=== PATIENT | male | born 1985 | race African-American/Black ===

== ENCOUNTER 2019-05-23 01:15 | Emergency (ER) | payer OTHER ==
[~2019-05-23] VITALS: Ht 175.3 cm; Wt 81.7 kg
[~2019-05-23 01:15] MED LIST: APIDRA SQ; HUMALOG100 UNIT/1 SC; HUMALOG100 UNIT/1 SQ; HUMULIN N100 UNIT/1 SC; LANTUS SC; LANTUS SQ; ONE TOUCH DELI1 EAC1
[2019-05-23 02:30] LABS: CALCIUM 8.7 mg/dL (8.5-10.1); CREATININE 11.9 mg/dL (0.7-1.3); POTASSIUM 4.4 mmol/L (3.5-5.1)
[2019-05-23 02:36] LABS: ALBUMIN 2.7 g/dL (3.4-5.0); DIRECT BILIRUBIN 0.1 mg/dL (<0.1-0.3); TOTAL BILIRUBIN 0.3 mg/dL (<0.1-1.0)
[2019-05-23 02:40] LABS: ABSOLUTE NEUTROPHILS 4.1 thou/uL (1.4-8.2); BASOPHILS 1.2 % (0.0-2.0); EOSINOPHILS 2.2 % (0.0-3.0); HEMATOCRIT 33.7 % (42.0-52.0); HEMOGLOBIN 10.9 gm/dL (14.0-18.0); LYMPHOCYTES 22.9 % (24.0-44.0); MCH 28.1 pg (26.0-34.0); MCHC 32.4 g/dL (28.0-37.0); MCV 86.6 fL (80.0-100.0); MONOCYTES 8.9 % (1.0-8.0); PLATELET COUNT 334 thou/uL (150-400); POLYS 64.8 % (36.0-66.0); RDW 17.1 % (10.5-14.5); WBC 6.3 thou/uL (4.0-11.0)
[2019-05-23 04:45] VITALS: BP 170/98
== END 2019-05-23 04:45 | disposition home or self-care (01) ==
LOC: ER 01:15
PROVIDERS: Emergency Medicine
DX: E11.649 Type 2 diabetes mellitus with hypoglycemia without coma (principal); E11.22 Type 2 diabetes mellitus with diabetic chronic kidney disease; N18.6 End stage renal disease; J45.909 Unspecified asthma, uncomplicated; F32.9 Major depressive disorder, single episode, unspecified; Z91.15 Patient's noncompliance with renal dialysis; Z79.4 Long term (current) use of insulin; Z99.2 Dependence on renal dialysis; Z88.8 Allergy status to other drugs, medicaments and biological substances

== ENCOUNTER 2019-06-10 06:01 | Emergency (ER) | payer OTHER ==
[~2019-06-10] VITALS: Ht 172.7 cm; Wt 78.4 kg
[2019-06-10 06:11] VITALS: BP 156/92
[2019-06-10 06:13] LABS: BE(vivo) -4.2 mmol/L (-2 to +3); HCO3 24.8 mmol/L (22.0-26.0); sO2 84.7 % (92.0-98.0)
[2019-06-10 06:15] LABS: PCO2 68.5 mmHg (35.0-45.0); pH 7.176 (7.360-7.450)
--- NOTE | 2019-06-10 06:25 | NUR ---
EKG COMPLETED. LEFT NASAL TRUMPET REMAINS IN PLACE. ATTEMPTING TO OBTAIN RECTAL TEMPERATURE. PATIENT PLACED ON 100%NRB. PAITENT CONTINUES TO JUST MOAN, STARTING TO FLAIL ARMS AND BECOME AGITATED. REPEAT GLUCOSE 145.
[2019-06-10 06:36] LABS: ABSOLUTE NEUTROPHILS 2.5 thou/uL (1.4-8.2); BASOPHILS 1.1 % (0.0-2.0); EOSINOPHILS 6.1 % (0.0-3.0); HEMATOCRIT 29.7 % (42.0-52.0); HEMOGLOBIN 9.4 gm/dL (14.0-18.0); LYMPHOCYTES 27.6 % (24.0-44.0); MCH 28.3 pg (26.0-34.0); MCHC 31.6 g/dL (28.0-37.0); MCV 89.6 fL (80.0-100.0); MONOCYTES 9.2 % (1.0-8.0); PLATELET COUNT 387 thou/uL (150-400); RBC 3.31 mil/uL (4.50-6.00); WBC 4.4 thou/uL (4.0-11.0)
[2019-06-10 06:40] LABS: ANION GAP 9 mmol/L (7-16); BUN 20 mg/dL (7-18); CALCIUM 9.2 mg/dL (8.5-10.1); CHLORIDE 97 mmol/L (98-107); CO2 31 mmol/L (21-32); CREATININE 6.7 mg/dL (0.7-1.3); GLUCOSE 76 mg/dL (74-106); POTASSIUM 3.6 mmol/L (3.5-5.1); SODIUM 137 mmol/L (136-145)
[2019-06-10 06:50] LABS: ALBUMIN 2.8 g/dL (3.4-5.0); MAGNESIUM 2.3 mg/dL (1.8-2.4); SGOT 18 U/L (15-37); SGPT 23 U/L (30-65); TOTAL BILIRUBIN 0.2 mg/dL (<0.1-1.0); TOTAL PROTEIN 8.3 g/dL (6.4-8.2); TROPONIN-I <0.06 ng/mL (<0.06)
[2019-06-10 08:25] VITALS: BP 124/77
[2019-06-10] MEDS ORDERED: AMLODIPINE BESY10 MG PO (09:02)
[2019-06-10] MEDS ORDERED: AMITRIPTYLINE H25 M4 (09:02)
[2019-06-10] MEDS ORDERED: CALCIUM ACETAT667 MG PO (09:03)
[2019-06-10] MEDS ORDERED: SYMBICORT80 MCG/4.1 INH (09:03)
[2019-06-10] MEDS ORDERED: CARVEDILOL25 MG PO (09:04)
[2019-06-10] MEDS ORDERED: VITAMIN D325 MCG PO (09:04)
--- NOTE | 2019-06-10 09:24 | NUR ---
RAFAEL FROM THE [facility]ER [facility] CALLED AND IS REQUESTING THAT THE PT HAVE A REPEAT ABG DONE AND THEN THAT HE BE CALLED BACK AT [phone] WITH THE REPEAT ABG RESULTS.
[2019-06-10] MEDS ORDERED: LEVO-T100 MCG PO (09:42)
[2019-06-10] MEDS ORDERED: EPOGEN10000 UNIT (09:42)
[2019-06-10] MEDS ORDERED: OMEPRAZOLE40 MG PO (09:42)
[2019-06-10] MEDS ORDERED: RANITIDINE HCL300 MG PO (09:43)
[2019-06-10 09:54] LABS: BE(vivo) -0.9 mmol/L (-2 to +3); HCO3 24.3 mmol/L (22.0-26.0); PCO2 42.8 mmHg (35.0-45.0); PO2 61.9 mmHg (80.0-100.0); pH 7.372 (7.360-7.450); sO2 91.1 % (92.0-98.0)
--- NOTE | 2019-06-10 09:57 | NUR ---
RAFAEL FROM THE [facility]ER [facility] WAS CALLED BACK WITH THE REPEAT ABG RESULTS. RAFAEL WAS GIVEN THE ABG RESULTS FROM THE REPEAT DRAW BY RT AT 0940. RAFAEL STATED THAT HE WOULD RELAY THE INFORMATION TO THE DR THERE AND HE WOULD CALL US BACK.
[2019-06-10 14:07] VITALS: BP 156/88
--- NOTE | 2019-06-10 14:08 | NUR ---
THE PT'S SISTER LIZETT WAS CALLED AND ADVISED THAT THE PT HAS BEEN PICKED UP BY [facility] AND IS BEING TRANSPORT TO [facility]. LIZETT APPRECIATED THE CALL AND STATED THEIR MOTHER IS AWAITING FOR THE PT AT [facility].
--- NOTE | 2019-06-13 14:52 | EKG ---
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
== END 2019-06-10 14:10 | disposition short-term general hospital (02) ==
LOC: ER 06:01 → EROBS 08:24 → ER 08:24
PROVIDERS: Emergency Medicine
DX: E11.649 Type 2 diabetes mellitus with hypoglycemia without coma (principal); E11.22 Type 2 diabetes mellitus with diabetic chronic kidney disease; N18.6 End stage renal disease; T68.XXXA Hypothermia, initial encounter; J18.9 Pneumonia, unspecified organism